=== PATIENT | female | born 1950 | race Caucasian/White ===

== ENCOUNTER 2017-11-11 09:52 | Emergency (ER) | payer OTHER ==
[~2017-11-11] VITALS: Ht 160 cm; Wt 65.5 kg
[2017-11-11] MEDS ORDERED: DIPH1TAB PO (11:40)
[2017-11-11 11:53] VITALS: BP 135/89
== END 2017-11-11 11:56 | disposition home or self-care (01) ==
LOC: ER 09:53
DX: R19.7 Diarrhea, unspecified (principal); E78.00 Pure hypercholesterolemia, unspecified; I10 Essential (primary) hypertension; Z88.8 Allergy status to other drugs, medicaments and biological substances; Z79.899 Other long term (current) drug therapy
CPT/HCPCS: 99283